=== PATIENT | male | born 1960 ===

== ENCOUNTER 2025-01-05 10:59 | Emergency (ER) | payer OTHER ==
[2025-01-05] MEDS ORDERED: Bupivacaine 0.5% 30 ML SDV INJECT PRN (11:14)
[2025-01-05] MEDS: Diphtheria,Pertussis(Acell),Tetanus Vaccine 0.5 ML Syringe IM ONE (11:26)
== END 2025-01-05 12:18 | disposition home or self-care (01) ==
LOC: VM.ED 10:59
DX: S61.211A Laceration without foreign body of left index finger without damage to nail, initial encounter (principal); Z23 Encounter for immunization; X50.9XXA Other and unspecified overexertion or strenuous movements or postures, initial encounter
CPT/HCPCS: 12001; 73140-F1; 90471; 90715; 99283-25